=== PATIENT | female | born 1935 | race Caucasian/White ===

== ENCOUNTER 2021-11-14 21:57 | Observation (INO) | payer MEDICARE ==
[~2021-11-14] VITALS: Ht 160 cm; Wt 67.4 kg
--- NOTE | 2021-11-14 22:13 | ED GI ---
General Stated Complaint: RECTAL BLEEDING History of Present Illness Date Seen by Provider: Nov 14, 2021 Time Seen by Provider: 22:08 Initial Comments 86-year-old female presents with bright red blood per rectum. Patient reports she has probably had 20 episodes of bloody stool today. Patient reports that started around noon and she is continue to have them throughout the day. She reports that she thought this afternoon they were getting little bit better but then it started up again. Patient is on Eliquis. Patient has a previous history of GI bleed approximately 4 years ago that was life-threatening. Patient reports that she got little bit dizzy. Patient reports some abdominal cramping/pain before she has a stool. Allergies and Home Medications Allergies Coded Allergies: No Known Drug Allergies (Unverified , 11/14/21) Patient Home Medication List Home Medication List Reviewed: Yes Review of Systems Review of Systems Constitutional: chills, dizziness; No fever Respiratory: Denies Cough, Denies Shortness of Air Cardiovascular: Denies Chest Pain, Denies Palpitations Gastrointestinal: See HPI, Rectal Bleeding Genitourinary: No Symptoms Reported Musculoskeletal: no symptoms reported Psychiatric/Neurological: No Symptoms Reported Physical Exam Vital Signs Vital Signs - First Documented 11/14/21 22:02 Temp 36.0 Pulse 73 Resp 15 B/P (MAP) 138/75 (96) Pulse Ox 95 O2 Delivery Room Air Capillary Refill : Height/Weight/BMI Height: '" Weight: lbs. oz. kg; BMI Method: General Appearance: WD/WN, no apparent distress HEENT: PERRL/EOMI Neck: full range of motion Respiratory: lungs clear, normal breath sounds Cardiovascular: normal peripheral pulses, regular rate, rhythm Gastrointestinal: non tender, soft Rectal: heme positive stool; No hemorrhoids Extremities: normal range of motion, non-tender Neurologic/Psychiatric: alert, normal mood/affect, oriented x 3 Skin: normal color, warm/dry Progress/Results/Core Measures Results/Orders Lab Results Laboratory Tests Test 11/14/21 22:10 11/15/21 00:35 Range/Units White Blood Count 11.4 H 4.3-11.0 10^3/uL Red Blood Count 3.72 L 3.80-5.11 10^6/uL Hemoglobin 10.6 L 11.5-16.0 g/dL Hematocrit 34 L 35-52 % Mean Corpuscular Volume 90 80-99 fL Mean Corpuscular Hemoglobin 29 25-34 pg Mean Corpuscular Hemoglobin Concent 32 32-36 g/dL Red Cell Distribution Width 15.0 H 10.0-14.5 % Platelet Count 215 130-400 10^3/uL Mean Platelet Volume 10.5 9.0-12.2 fL Immature Granulocyte % (Auto) 1 % Neutrophils (%) (Auto) 73 42-75 % Lymphocytes (%) (Auto) 22 12-44 % Monocytes (%) (Auto) 4 0-12 % Eosinophils (%) (Auto) 0 0-10 % Basophils (%) (Auto) 0 0-10 % Neutrophils # (Auto) 8.3 H 1.8-7.8 10^3/uL Lymphocytes # (Auto) 2.5 1.0-4.0 10^3/uL Monocytes # (Auto) 0.5 0.0-1.0 10^3/uL Eosinophils # (Auto) 0.0 0.0-0.3 10^3/uL Basophils # (Auto) 0.0 0.0-0.1 10^3/uL Immature Granulocyte # (Auto) 0.1 0.0-0.1 10^3/uL Prothrombin Time 15.6 H 12.2-14.7 SEC INR Comment 1.2 0.8-1.4 Activated Partial Thromboplast Time 26 24-35 SEC Sodium Level 135 135-145 MMOL/L Potassium Level 4.8 3.6-5.0 MMOL/L Chloride Level 100 98-107 MMOL/L Carbon Dioxide Level 22 21-32 MMOL/L Anion Gap 13 5-14 MMOL/L Blood Urea Nitrogen 13 7-18 MG/DL Creatinine 0.75 0.60-1.30 MG/DL Estimat Glomerular Filtration Rate 77 BUN/Creatinine Ratio 17 Glucose Level 208 H 70-105 MG/DL Calcium Level 8.6 8.5-10.1 MG/DL Corrected Calcium 8.8 8.5-10.1 MG/DL Total Bilirubin 0.3 0.1-1.0 MG/DL Aspartate Amino Transf (AST/SGOT) 14 5-34 U/L Alanine Aminotransferase (ALT/SGPT) 13 0-55 U/L Alkaline Phosphatase 59 40-136 U/L Total Protein 5.8 L 6.4-8.2 GM/DL Albumin 3.7 3.2-4.5 GM/DL Urine Color YELLOW Urine Clarity CLEAR Urine pH 6.0 5-9 Urine Specific [place] <=1.005 1.016-1.022 Urine Protein NEGATIVE NEGATIVE Urine Glucose (UA) NEGATIVE NEGATIVE Urine Ketones 1+ H NEGATIVE Urine Nitrite NEGATIVE NEGATIVE Urine Bilirubin NEGATIVE NEGATIVE Urine Urobilinogen 0.2 < = 1.0 MG/DL Urine Leukocyte Esterase TRACE H NEGATIVE Urine RBC (Auto) 2+ H NEGATIVE Urine RBC RARE /HPF Urine WBC 2-5 /HPF Urine Squamous Epithelial Cells RARE /HPF Urine Renal Epithelial Cells RARE /HPF Urine Crystals NONE /LPF Urine Bacteria NEGATIVE /HPF Urine Casts PRESENT /LPF Urine Hyaline Casts 0-2 H /LPF Urine Mucus SMALL H /LPF Urine Culture Indicated NO My Orders Orders - HEAD,SHAWN L DO Cbc With Automated Diff (11/14/21 22:03) Comprehensive Metabolic Panel (11/14/21 22:03) Protime With Inr (11/14/21:03) Partial Thromboplastin Time (11/14/21 22:03) Ua Culture If Indicated (11/14/21 22:03) Type And Screen (11/14/21 22:03) Ct Abdomen/Pelvis W (11/14/21 22:51) Iohexol Injection (Omnipaque 350 Mg/Ml 1 (11/14/21 23:00) Received Contrast (Hold Metformin- Contr (11/14/21 23:00) Sodium Chloride Flush (Catheter Flush Sy (11/14/21 23:00) Ns (Ivpb) (Sodium Chloride 0.9% Ivpb Bag (11/14/21 23:00) Ed Admission (Communication) (11/15/21 00:31) Medications Given in ED Current Medications Medications Dose Ordered Sig/Divine Route Start Time Stop Time Status Last Admin Dose Admin Iohexol 100 ml ONCE ONCE IV 11/14/21 23:00 11/14/21 23:02 DC 11/14/21 23:47 100 ML Sodium Chloride 10 ml NEEDED PRN IV 11/14/21 23:00 11/14/21 23:48 10 ML Sodium Chloride 100 ml ONCE ONCE IV 11/14/21 23:00 11/14/21 23:02 DC 11/14/21 23:48 80 ML Vital Signs/I&O 11/14/21 11/15/21 22:02 01:00 Temp 36.0 Pulse 73 71 Resp 15 14 B/P (MAP) 138/75 (96) 133/63 Pulse Ox 95 95 O2 Delivery Room Air Room Air Progress Progress Note : Progress Note Patient hemoglobin is 10.6. Patient to be admitted for observation to Dr. Martino. We have no prior hemoglobins at this time to compare. She did not have any active bleeding while in the ER. Diagnostic Imaging Diagonstic Imaging: CT Plain Films/CT/US/NM/MRI: abdomen, pelvis Comments Scattered diverticulosis, no definite diverticulitis or colitis 11 mm noncalcified nodule left lower lobe Reviewed: [facility] Primary Impression: Rectal/anal hemorrhage Disposition: 30 STILL A PATIENT Condition: Stable Admissions Decision to Admit/Date: Nov 15, 2021 Time/Decision to Admit Time: 00:30 Departure-Patient Inst. Referrals: LIA FOOTE MD (PCP/Family) Primary Care Physician SHAWN HEAD DO Nov 14, 2021 22:13
[2021-11-14 22:16] LABS: BASOPHILS % (AUTO) 0 % (0-10); EOSINOPHILS % (AUTO) 0 % (0-10); HEMATOCRIT 34 % (35-52); HEMOGLOBIN 10.6 g/dL (11.5-16.0); LYMPHOCYTES # (AUTO) 2.5 10^3/uL (1.0-4.0); LYMPHOCYTES % (AUTO) 22 % (12-44); MEAN CORPUSCULAR HEMOGLOBIN 29 pg (25-34); MEAN CORPUSCULAR HGB CONC 32 g/dL (32-36); MEAN CORPUSCULAR VOLUME 90 fL (80-99); MEAN PLATELET VOLUME 10.5 fL (9.0-12.2); MONOCYTES # (AUTO) 0.5 10^3/uL (0.0-1.0); MONOCYTES % (AUTO) 4 % (0-12); NEUTROPHILS # (AUTO) 8.3 10^3/uL (1.8-7.8); NEUTROPHILS % (AUTO) 73 % (42-75); PLATELET COUNT 215 10^3/uL (130-400); WHITE BLOOD COUNT 11.4 10^3/uL (4.3-11.0)
[2021-11-14 22:30] LABS: INR 1.2 (0.8-1.4); PROTHROMBIN TIME PATIENT 15.6 SEC (12.2-14.7)
[2021-11-14 22:39] LABS: BILIRUBIN,TOTAL 0.3 MG/DL (0.1-1.0); CALCIUM 8.6 MG/DL (8.5-10.1); CREATININE SERUM 0.75 MG/DL (0.60-1.30); POTASSIUM 4.8 MMOL/L (3.6-5.0); TOTAL PROTEIN 5.8 GM/DL (6.4-8.2)
[2021-11-14 22:40] LABS: ALBUMIN 3.7 GM/DL (3.2-4.5)
[2021-11-14] MEDS ORDERED: NS 100 ML (IVPB) BAG IV ONE (23:00)
[2021-11-14] MEDS ORDERED: HOLD METFORMIN - RECEIVED CONTRAST 20 ML VIAL IV SCH (23:00)
[2021-11-14] MEDS ORDERED: IOHEXOL 350 MG/ML 100 ML (OMNIPAQUE 350) VIAL IV ONE (23:00)
[2021-11-14] MEDS ORDERED: CATHETER FLUSH 10 ML SYR IV PRN (23:00)
[2021-11-15 00:50] LABS: BILIRUBIN,URINE NEGATIVE (NEGATIVE); CLARITY,URINE CLEAR; COLOR,URINE YELLOW; GLUCOSE, URINE (UA) NEGATIVE (NEGATIVE); KETONES,URINE 1+ (NEGATIVE); LEUKOCYTE ESTERASE ,URINE TRACE (NEGATIVE); NITRITE,URINE NEGATIVE (NEGATIVE); PROTEIN,URINE NEGATIVE (NEGATIVE)
[2021-11-15 00:56] LABS: BACTERIA,URINE NEGATIVE /HPF; RBC,URINE RARE /HPF; RENAL EPITHELIAL CELLS,URINE RARE /HPF; SQUAMOUS EPITHELIAL CELL,UR RARE /HPF
[2021-11-15 00:57] LABS: HYALINE CASTS, URINE 0-2 /LPF
[2021-11-15 02:12] VITALS: BP 133/67
[2021-11-15] MEDS ORDERED: CATHETER FLUSH 10 ML SYR IVP PRN (02:30)
[2021-11-15] MEDS ORDERED: ONDANSETRON 4 MG/2 ML (SDV) Z0FRAN IV PRN (02:30)
[2021-11-15 04:19] VITALS: BP 119/57
[2021-11-15 05:39] LABS: BASOPHILS % (AUTO) 0 % (0-10); EOSINOPHILS % (AUTO) 0 % (0-10); HEMATOCRIT 31 % (35-52); HEMOGLOBIN 10.1 g/dL (11.5-16.0); LYMPHOCYTES # (AUTO) 2.2 10^3/uL (1.0-4.0); LYMPHOCYTES % (AUTO) 21 % (12-44); MEAN CORPUSCULAR HEMOGLOBIN 29 pg (25-34); MEAN CORPUSCULAR HGB CONC 33 g/dL (32-36); MEAN CORPUSCULAR VOLUME 90 fL (80-99); MEAN PLATELET VOLUME 10.3 fL (9.0-12.2); MONOCYTES # (AUTO) 0.7 10^3/uL (0.0-1.0); MONOCYTES % (AUTO) 7 % (0-12); NEUTROPHILS # (AUTO) 7.5 10^3/uL (1.8-7.8); NEUTROPHILS % (AUTO) 71 % (42-75); PLATELET COUNT 216 10^3/uL (130-400); WHITE BLOOD COUNT 10.5 10^3/uL (4.3-11.0)
[2021-11-15 05:55] LABS: POTASSIUM 4.3 MMOL/L (3.6-5.0)
[2021-11-15 05:56] LABS: CALCIUM 8.7 MG/DL (8.5-10.1)
[2021-11-15 06:00] LABS: CREATININE SERUM 0.65 MG/DL (0.60-1.30)
[2021-11-15] MEDS: CATHETER FLUSH 10 ML SYR IVP SCH ×3 (06:22→20:36)
[2021-11-15 07:55] VITALS: BP 139/67
--- NOTE | 2021-11-15 08:09 | Diagnostic Imaging Report ---
PROCEDURE: CT abdomen and pelvis with contrast. TECHNIQUE: Multiple contiguous axial images were obtained through the abdomen and pelvis after administration of intravenous contrast. Auto Exposure Controls were utilized during the CT exam to meet ALARA standards for radiation dose reduction. All CT scans use one or more of the following dose optimizing techniques: automated exposure control, MA and/or KvP adjustment based on patient size and exam type or iterative reconstruction. INDICATION: Abdominal pain. Rectal bleeding. COMPARISON: None. FINDINGS: 1.1 cm solid pulmonary nodule in the left lower lobe. Numerous simple appearing cysts in the liver. Indeterminate enhancing mass in the right hepatic lobe measuring approximately 0.9 cm. Cholecystectomy. Calcified granulomas in the spleen. The pancreas, adrenals, left kidney, collecting systems and bladder are negative. Simple appearing cysts in the right kidney. Reproductive structures are unremarkable. Normal appendix. No free intraperitoneal air or fluid. No lymphadenopathy. Moderate colonic diverticulosis without evidence of active diverticulitis. No evidence of bowel obstruction. Moderate spondylotic changes in the visualized spine. No acute osseous findings. IMPRESSION: 1. Moderate colonic diverticulosis without evidence of active diverticulitis. 2. Indeterminate enhancing mass in the right hepatic lobe measuring up to 0.9 cm. Recommend nonemergent follow-up with multiphase contrast-enhanced dedicated cross-sectional imaging. 3. 1.1 cm solid pulmonary nodule in the left lower lobe. Fleischmann criteria would recommend a chest CT in 3 months. Findings differ from preliminary interpretation which did not mention the indeterminate enhancing mass in the liver. Report was faxed and called to Dominick Patel nurse by radah at 8:05am. SARITA Jimenez, was also notified. Dictated by: Dictated on workstation # [id number]
--- NOTE | 2021-11-15 10:35 | History & Physical ---
HPI History of Present Illness: 86 yo female presented to ER via ambulance after yesterday at noon started having bleeding from rectum with diarrhea multiple times from then on all day. She called the doctor's office and they told her if it kept going or got worse to go the ER. She had some decrease but then worsened again around 7:30 pm with more bleeding and diarrhea. She has not had any more episodes since the ambulance came, but at that point she was so weak she was near passing out. Reports blood pressure was very low when EMS arrived and she felt better right off after getting IVF. She does take Eliquis but didn't take it yesterday evening after this started. She had a severe episode of this 4 years ago and had to be life flighted out of of [place] and was in ICU for several days, more than a week and had 12 units prbcs but had significant difficulty finding the source. Finally they were able to find a bleeding source behind a diverticuli and clipped that as well as a few other clips. She ultimately went to swing bed for further recovery. One time several years prior she had some bleeding which stopped and she had colonoscopy then which didn't show any concerns, but she also notes she wasn't on blood thinner then. Source: patient, family Exam Limitations: no limitations Date seen by provider: Nov 15, 2021 Time Seen by Provider: 10:33 Attending Physician Clayton Ortiz MD PCP Admitting Physician: Bianca Martino MD Attending Physician: Bianca Martino MD Consult Date of Admission Nov 15, 2021 at 02:04 Home Medications Home Medications Reviewed patient Home Medication Reconciliation performed by pharmacy medication reconciliations turfgrass technician and/or nursing. Patients Allergies have been reviewed. Allergies Coded Allergies: No Known Drug Allergies (Unverified , 11/14/21) [id number] Hx Patient Social History Smoking Status: Former Smoker Alcohol Use?: No Have you traveled recently?: No Immunizations Up To Date Influenza Vaccine Up-to-Date: Yes; Up-to-Date (02/05/21) First/Initial COVID19 Vaccinat: 05/09/2020 Second COVID19 Vaccination [place]: 02/28/2021 Third COVID19 Vaccination Date: 10/08/2021 COVID19 Vaccine Manager Consumer Insights: Rose Marie Past Medical History PMHx: HTN Atrial fibrillation COPD Diverticulosis SurgHx: Multiple scopes Liver cyst removal with cholecystectomy Family Medical History Significant Family History: No Pertinent Family Hx Review of Systems ([facility]) Constitutional: No fever Respiratory: No short of breath Cardiovascular: No chest pain, No palpitations Gastrointestinal: see HPI Reviewed Test Results Reviewed Test Results Lab Laboratory Tests Test 11/14/21 22:10 11/15/21 00:35 11/15/21 05:18 11/15/21 11:14 Range/Units White Blood Count 11.4 H 10.5 9.4 4.3-11.0 10^3/uL Red Blood Count 3.72 L 3.46 L 3.67 L 3.80-5.11 10^6/uL Hemoglobin 10.6 L 10.1 L 10.7 L 11.5-16.0 g/dL Hematocrit 34 L 31 L 33 L 35-52 % Mean Corpuscular Volume 90 90 91 80-99 fL Mean Corpuscular Hemoglobin 29 29 29 25-34 pg Mean Corpuscular Hemoglobin Concent 32 33 32 32-36 g/dL Red Cell Distribution Width 15.0 H 15.0 H 15.1 H 10.0-14.5 % Platelet Count 215 216 209 130-400 10^3/uL Mean Platelet Volume 10.5 10.3 10.3 9.0-12.2 fL Immature Granulocyte % (Auto) 1 1 % Neutrophils (%) (Auto) 73 71 42-75 % Lymphocytes (%) (Auto) 22 21 12-44 % Monocytes (%) (Auto) 4 7 0-12 % Eosinophils (%) (Auto) 0 0 0-10 % Basophils (%) (Auto) 0 0 0-10 % Neutrophils # (Auto) 8.3 H 7.5 1.8-7.8 10^3/uL Lymphocytes # (Auto) 2.5 2.2 1.0-4.0 10^3/uL Monocytes # (Auto) 0.5 0.7 0.0-1.0 10^3/uL Eosinophils # (Auto) 0.0 0.0 0.0-0.3 10^3/uL Basophils # (Auto) 0.0 0.0 0.0-0.1 10^3/uL Immature Granulocyte # (Auto) 0.1 0.1 0.0-0.1 10^3/uL Prothrombin Time 15.6 H 12.2-14.7 SEC INR Comment 1.2 0.8-1.4 Activated Partial Thromboplast Time 26 24-35 SEC Sodium Level 135 138 135-145 MMOL/L Potassium Level 4.8 4.3 3.6-5.0 MMOL/L Chloride Level 100 107 98-107 MMOL/L Carbon Dioxide Level 22 23 21-32 MMOL/L Anion Gap 13 8 5-14 MMOL/L Blood Urea Nitrogen 13 10 7-18 MG/DL Creatinine 0.75 0.65 0.60-1.30 MG/DL Estimat Glomerular Filtration Rate 77 85 BUN/Creatinine Ratio 17 15 Glucose Level 208 H 109 H 70-105 MG/DL Calcium Level 8.6 8.7 8.5-10.1 MG/DL Corrected Calcium 8.8 8.5-10.1 MG/DL Total Bilirubin 0.3 0.1-1.0 MG/DL Aspartate Amino Transf (AST/SGOT) 14 5-34 U/L Alanine Aminotransferase (ALT/SGPT) 13 0-55 U/L Alkaline Phosphatase 59 40-136 U/L Total Protein 5.8 L 6.4-8.2 GM/DL Albumin 3.7 3.2-4.5 GM/DL Urine Color YELLOW Urine Clarity CLEAR Urine pH 6.0 5-9 Urine Specific [place] <=1.005 1.016-1.022 Urine Protein NEGATIVE NEGATIVE Urine Glucose (UA) NEGATIVE NEGATIVE Urine Ketones 1+ H NEGATIVE Urine Nitrite NEGATIVE NEGATIVE Urine Bilirubin NEGATIVE NEGATIVE Urine Urobilinogen 0.2 < = 1.0 MG/DL Urine Leukocyte Esterase TRACE H NEGATIVE Urine RBC (Auto) 2+ H NEGATIVE Urine RBC RARE /HPF Urine WBC 2-5 /HPF Urine Squamous Epithelial Cells RARE /HPF Urine Renal Epithelial Cells RARE /HPF Urine Crystals NONE /LPF Urine Bacteria NEGATIVE /HPF Urine Casts PRESENT /LPF Urine Hyaline Casts 0-2 H /LPF Urine Mucus SMALL H /LPF Urine Culture Indicated NO Radiology CT abd/pelvis 11/14/21: IMPRESSION: 1. Moderate colonic diverticulosis without evidence of active diverticulitis. 2. Indeterminate enhancing mass in the right hepatic lobe measuring up to 0.9 cm. Recommend nonemergent follow-up with multiphase contrast-enhanced dedicated cross-sectional imaging. 3. 1.1 cm solid pulmonary nodule in the left lower lobe. Fleischmann criteria would recommend a chest CT in 3 months. Physical Exam-([facility]) Physical Exam Vital Signs VS - Last 72 Hours, by Label 11/14/21 11/15/21 11/15/21 11/15/21 22:02 01:00 02:12 02:30 Temp 36.0 37.1 Pulse 73 71 70 Resp 15 14 18 B/P (MAP) 138/75 (96) 133/63 133/67 (89) Pulse Ox 95 95 93 O2 Delivery Room Air Room Air Room Air Room Air 11/15/21 11/15/21 11/15/21 04:19 07:55 11:21 Temp 36.2 36.4 36.5 Pulse 65 76 65 Resp 18 18 18 B/P (MAP) 119/57 (77) 139/67 (91) 139/61 (87) Pulse Ox 93 94 96 O2 Delivery Room Air Room Air Room Air Capillary Refill : Less Than 3 Seconds General Appearance: WD/WN, no apparent distress Respiratory: lungs clear, normal breath sounds Cardiovascular: regular rate, rhythm, no murmur Gastrointestinal: normal bowel sounds, non tender, soft Extremities: no pedal edema Neurologic/Psychiatric: alert, normal mood/affect, oriented x 3 Skin: normal color, warm/dry Assessment/Plan Assessment/Plan Admission Status: Observation (1) Hematochezia Status: Acute Assessment & Plan: Second episode, first episode 4 years ago life threatening. Suspect recurrent diverticula bleed, follow hemoglobin, hold Eliquis. Surgery consulted. (2) Atrial fibrillation Status: Chronic Assessment & Plan: Hold Eliquis, continue Tikosyn. Hold diltiazem due to low BP. (3) Hypertension Status: Chronic Assessment & Plan: Hold diltiazem and lisinopril due to hypotension. (4) Hyperlipidemia Status: Chronic Assessment & Plan: Resume home statin. (5) COPD (chronic obstructive pulmonary disease) Status: Chronic Assessment & Plan: Resume home Trelegy. (6) Liver mass, right lobe Status: Acute Assessment & Plan: Incidental on CT, discussed with patient recommendation for dedicated image follow up non-emergent. (7) Left lower lobe pulmonary nodule Status: Acute Assessment & Plan: Incident, discussed with patient recommendation for [address] (8) DVT prophylaxis Status: Acute Assessment & Plan: No pharmacologic due to acute GI bleeding. BIANCA MARTINO MD Nov 15, 2021 10:35
[2021-11-15] MEDS ORDERED: FLUT1BLS3 INH (10:41)
[2021-11-15] MEDS ORDERED: POTA-51 PO (10:41)
[2021-11-15] MEDS ORDERED: DOFE250C3 PO (10:41)
[2021-11-15] MEDS ORDERED: LISI20TA26 PO (10:41)
[2021-11-15] MEDS ORDERED: DIGO125T3 PO (10:41)
[2021-11-15] MEDS ORDERED: PRAV40TA2 PO (10:41)
[2021-11-15] MEDS ORDERED: APIX5TAB PO (10:41)
[2021-11-15] MEDS ORDERED: DILT240C91 PO (10:41)
[2021-11-15] MEDS ORDERED: PATIENT MAY USE OWN MEDS, ALL MC SCH (11:00)
[2021-11-15 11:19] LABS: HEMATOCRIT 33 % (35-52); HEMOGLOBIN 10.7 g/dL (11.5-16.0); MEAN CORPUSCULAR HEMOGLOBIN 29 pg (25-34); MEAN CORPUSCULAR HGB CONC 32 g/dL (32-36); MEAN CORPUSCULAR VOLUME 91 fL (80-99); MEAN PLATELET VOLUME 10.3 fL (9.0-12.2); PLATELET COUNT 209 10^3/uL (130-400); WHITE BLOOD COUNT 9.4 10^3/uL (4.3-11.0)
[2021-11-15 11:21] VITALS: BP 139/61
[2021-11-15] MEDS ORDERED: ACET-2267 PO (12:28)
--- NOTE | 2021-11-15 13:36 | Consultation - Surgery ---
PATRICIA ANDRADE 11/15/21 1336: History of Present Illness History of Present Illness Patient Consulted On(teodoro/time) 11/15/21 13:22 Date Seen by Provider: Nov 15, 2021 Time Seen by Provider: 12:56 History of Present Illness Consult requested by Dr. Ho. A 86 y/o female patient with hx of HTN, Afib, diverticulosis presents with CC of GI bleeding with diarrhea onset 1 day ago. Patient reports she had diarrhea with bright red blood starting at noon yesterday. She called her primary care office and was told to come to the ER if the bleeding did not stop. States in the ER, patient continued to have diarrhea, but her last episode was at 8:30 pm last night. She states she had severe bleeding per rectum like this 4 years ago and had to undergo 4 colonoscopies at [facility] which showed diverticulosis to be present. Diverticuli were clamped and bleeding resolved until now. Patient has some dizziness. Patient denies any abdominal pain, chest pain, shortness of breath, nausea/vomiting, fever or chills at this time. Patient is on Eliquis but did not take her last dose yesterday due to bleeding. Hb is 10.7 currently. Allergies and Home Medications Allergies Coded Allergies: No Known Drug Allergies (Unverified , 11/14/21) Patient Home Medication List Home Medication List Reviewed: Yes Acetaminophen (Tylenol Extra Strength) 500 Mg Tablet, 500-1,000 MG PO Q8H PRN for PAIN-MILD (1-4), (Reported) Entered as Reported by: CATRACHITA VIDALES on 11/15/21 1228 Last Action: Reviewed Apixaban (Eliquis) 5 Mg Tablet, 5 MG PO BID, (Reported) Entered as Reported by: BIANCA HO on 11/15/21 1041 Last Action: Reviewed Digoxin (Digoxin) 125 Mcg (0.125 Mg) Tablet, 125 MCG PO DAILY, (Reported) Entered as Reported by: BIANCA HO on 11/15/21 104 Last Action: Reviewed Diltiazem HCl (Diltiazem 24Hr ER) 240 Mg Cap.er.24h, 240 MG PO DAILY, (Reported) Entered as Reported by: BIANCA HO on 11/15/21 1041 Last Action: Reviewed Dofetilide (Dofetilide) 250 Mcg Capsule, 250 MCG PO , (Reported) Entered as Reported by: BIANCA HO on 11/15/211040 Last Action: Reviewed Fluticasone/Umeclidin/Vilanter (Trelegy Ellipta 100-62.5-25) 100-62.5 B lst.w.dev, 1 PUFF INH DAILY, (Reported) Entered as Reported by: BIANCA HO on 11/15/211040 Last Action: Reviewed Lisinopril (Lisinopril) 20 Mg Tablet, 20 MG PO BID, (Reported) Entered as Reported by: BIANCA HO on 11/15/211040 Last Action: Reviewed Potassium Chloride (Potassium Chloride) 20 Meq Tablet.er, 20 MEQ PO BID, (Reported) Entered as Reported by: BIANCA HO on 11/15/211040 Last Action: Reviewed Pravastatin Sodium (Pravastatin Sodium) 40 Mg Tablet, 40 MG PO HS, (Reported) Entered as Reported by: BIANCA HO on 11/15/211040 Last Action: Reviewed Past Sumoafz-Kwynom-Mpxzlk Hx Patient Social History Smoking Status: Former Smoker Alcohol Use?: No Have you traveled recently?: No Cardiovascular History of Cardiac Disorders: Yes Cardiac Disorders: Atrial Fibrillation, Hypertension Gastrointestinal History of Gastrointestinal Di: Yes Gastrointestinal Disorders: Abdominal Hernia, Diverticulosis, Hemorrhoids Family Medical History Significant Family History: No Pertinent Family Hx Review of Systems-General Constitutional: No chills, No diaphoresis; dizziness; No fever EENTM: No hearing loss, No blurred vision Respiratory: No cough, No short of breath Cardiovascular: No chest pain, No palpitations Gastrointestinal: No abdominal pain; diarrhea (with bright red blood) Genitourinary: No discharge, No dysuria Musculoskeletal: No back pain, No joint pain Skin: No change in color, No change in hair/nails Psychiatric/Neurological: Denies Anxiety, Denies Depressed Physical Exam-General Problems Physical Exam Vital Signs Vital Signs - First Documented 11/14/21 22:02 Temp 36.0 Pulse 73 Resp 15 B/P (MAP) 138/75 (96) Pulse Ox 95 O2 Delivery Room Air Capillary Refill : Less Than 3 Seconds General Appearance: WD/WN, no apparent distress HEENT: PERRL/EOMI, normal ENT inspection Neck: supple, normal inspection Respiratory: chest non-tender, no respiratory distress, no accessory muscle use Cardiovascular: no edema, no JVD Gastrointestinal: non tender, soft Rectal: No deferred Back: normal inspection, no CVA tenderness Extremities: normal inspection, no pedal edema Neurologic/Psychiatric: alert, normal mood/affect, oriented x 3 Skin: normal color, warm/dry Lymphatic: no adenopathy Data Review Labs Laboratory Tests 11/14/21 22:10: White Blood Count 11.4H, Red Blood Count 3.72L, Hemoglobin 10.6L, Hematocrit 34L , Mean Corpuscular Volume 90, Mean Corpuscular Hemoglobin 29, Mean Corpuscular Hemoglobin Concent 32, Red Cell Distribution Width 15.0H, Platelet Count 215, Mean Platelet Volume 10.5, Immature Granulocyte % (Auto) 1, Neutrophils (%) (Auto) 73, Lymphocytes (%) (Auto) 22, Monocytes (%) (Auto) 4, Eosinophils (%) (Auto) 0, Basophils (%) (Auto) 0, Neutrophils # (Auto) 8.3H, Lymphocytes # (Auto) 2.5, Monocytes # (Auto) 0.5, Eosinophils # (Auto) 0.0, Basophils # (Auto) 0.0, Immature Granulocyte # (Auto) 0.1, Prothrombin Time 15.6H, INR Comment 1.2, Activated Partial Thromboplast Time 26, Sodium Level 135, Potassium Level 4.8, Chloride Level 100, Carbon Dioxide Level 22, Anion Gap 13, Blood Urea Nitrogen 13, Creatinine 0.75, Estimat Glomerular Filtration Rate 77, BUN/Creatinine Ratio 17, Glucose Level 208H, Calcium Level 8.6, Corrected Calcium 8.8, Total Biliru bin 0.3, Aspartate Amino Transf (AST/SGOT) 14, Alanine Aminotransferase (ALT/SGPT) 13, Alkaline Phosphatase 59, Total Protein 5.8L, Albumin 3.7 11/15/21 00:35: Urine Color YELLOW, Urine Clarity CLEAR, Urine pH 6.0, Urine Specific [place] <=1.005, Urine Protein NEGATIVE, Urine Glucose (UA) NEGATIVE, Urine Ketones 1+H, Urine Nitrite NEGATIVE, Urine Bilirubin NEGATIVE, Urine Urobilinogen 0.2, Urine Leukocyte Esterase TRACEH, Urine RBC (Auto) 2+H, Urine RBC RARE, Urine WBC 2-5, Urine Squamous Epithelial Cells RARE, Urine Renal Epithelial Cells RARE, Urine Crystals NONE, Urine Bacteria NEGATIVE, Urine Casts PRESENT, Urine Hyaline Casts 0-2H, Urine Mucus SMALLH, Urine Culture Indicated NO 11/15/21 05:18: White Blood Count 10.5, Red Blood Count 3.46L, Hemoglobin 10.1L, Hematocrit 31L, Mean Corpuscular Volume 90, Mean Corpuscular Hemoglobin 29, Mean Corpuscular Hemoglobin Concent 33, Red Cell Distribution Width 15.0H, Platelet Count 216, Mean Platelet Volume 10.3, Immature Granulocyte % (Auto) 1, Neutrophils (%) (Auto) 71, Lymphocytes (%) (Auto) 21, Monocytes (%) (Auto) 7, Eosinophils (%) (Auto) 0, Basophils (%) (Auto) 0, Neutrophils # (Auto) 7.5, Lymphocytes # (Auto) 2.2, Monocytes # (Auto) 0.7, Eosinophils # (Auto) 0.0, Basophils # (Auto) 0.0, Immature Granulocyte # (Auto) 0.1, Sodium Level 138, Potassium Level 4.3, Chloride Level 107, Carbon Dioxide Level 23, Anion Gap 8, Blood Urea Nitrogen 10 , Creatinine 0.65, Estimat Glomerular Filtration Rate 85, BUN/Creatinine Ratio 15, Glucose Level 109H, Calcium Level 8.7 11/15/21 11:14: White Blood Count 9.4, Red Blood Count 3.67L, Hemoglobin 10.7L, Hematocrit 33L, Mean Corpuscular Volume 91, Mean Corpuscular Hemoglobin 29, Mean Corpuscular Hemoglobin Concent 32, Red Cell Distribution Width 15.1H, Platelet Count 209, Mean Platelet Volume 10.3 Assessment/Plan Assessment/Plan Assessment/Plan History of Diverticulosis GI Bleed Atrial Fibrillation Continue to monitor labs Consider discharge home soon since bleeding has resolved Consider colonoscopy in the future if necessary ASHLEY BARKER DO 11/15/21 5164: History of Present Illness History of Present Illness History of Present Illness Counts requested by Dr. Ho for rectal bleeding. Patient is a 86-year-old female with rectal bleeding that started yesterday at noon. The ambulance came to pick her up which she states is stopped just prior to their arrival. She went to the ER. She states that she had some slight crampy pain only when she was about to have diarrhea but otherwise has no abdominal pain. She is on anticoagulation for atrial fibrillation. She is not had any significant bleeding since. She has history of bleeding 4 years ago which was found to be diverticular. Patient reports some dizziness. She denies fever sweats chills shortness of breath or chest pain at this time. Hemoglobin 10.7. Allergies and Home Medications Allergies Coded Allergies: No Known Drug Allergies (Unverified , 11/14/21) Patient Home Medication List Home Medication List Reviewed: Yes Acetaminophen (Tylenol Extra Strength) 500 Mg Tablet, 500-1,000 MG PO Q8H PRN for PAIN-MILD (1-4), (Reported) Entered as Reported by: CATRACHITA VIDALES on 11/15/21 1228 Last Action: Reviewed Apixaban (Eliquis) 5 Mg Tablet, 5 MG PO BID, (Reported) Entered as Reported by: BIANCA HO on 11/15/211040 Last Action: Reviewed Digoxin (Digoxin) 125 Mcg (0.125 Mg) Tablet, 125 MCG PO DAILY, (Reported) Entered as Reported by: BIANCA HO on 11/15/21 104 Last Action: Reviewed Diltiazem HCl (Diltiazem 24Hr ER) 240 Mg Cap.er.24h, 240 MG PO DAILY, (Reported) Entered as Reported by: BIANCA HO on 11/15/211040 Last Action: Reviewed Dofetilide (Dofetilide) 250 Mcg Capsule, 250 MCG PO 0830,2029, (Reported) Entered as Reported by: BIANCA HO on 11/15/211040 Last Action: Reviewed Fluticasone/Umeclidin/Vilanter (Trelegy Ellipta 100-62.5-25) 100-62.5 Blst.w.dev, 1 PUFF INH DAILY, (Reported) Entered as Reported by: BIANCA HO on 11/15/21 104 Last Action: Reviewed Lisinopril (Lisinopril) 20 Mg Tablet, 20 MG PO BID, (Reported) Entered as Reported by: BIANCA HO on 11/15/211040 Last Action: Reviewed Potassium Chloride (Potassium Chloride) 20 Meq Tablet.er, 20 MEQ PO BID, (Reported) Entered as Reported by: BIANCA HO on 11/15/211040 Last Action: Reviewed Pravastatin Sodium (Pravastatin Sodium) 40 Mg Tablet, 40 MG PO HS, (Reported) Entered as Reported by: BIANCA N [place] on 11/15/211040 Last Action: Reviewed Past Wuaekha-Kanbhc-Xqvkii Hx Reviewed Nursing Assessment Reviewed/Agree w Nursing PMH: Yes Family Medical History Significant Family History: No Pertinent Family Hx Review of Systems-General Constitutional: No chills, No diaphoresis; dizziness; No fever EENTM: No hearing loss, No blurred vision Respiratory: No cough, No short of breath Cardiovascular: No chest pain, No palpitations Gastrointestinal: No abdominal pain; diarrhea (with bright red blood), melena Genitourinary: No discharge, No dysuria Musculoskeletal: No back pain, No joint pain Skin: No change in color, No change in hair/nails Psychiatric/Neurological: Denies Anxiety, Denies Depressed All Other Systems Reviewed Negative Unless Noted: Yes (Negative excepted noted.) Physical Exam-General Problems Physical Exam General Appearance: WD/WN, no apparent distress HEENT: PERRL/EOMI, normal ENT inspection Neck: supple, normal inspection Respiratory: chest non-tender, no respiratory distress, no accessory muscle use Cardiovascular: no edema, no JVD Gastrointestinal: non tender, soft Rectal: deferred Back: normal inspection, no CVA tenderness Extremities: normal inspection, no pedal edema Neurologic/Psychiatric: alert, normal mood/affect, oriented x 3 Skin: normal color, warm/dry Lymphatic: no adenopathy Assessment/Plan Assessment/Plan Assessment/Plan Diverticulosis Lower GI Bleed Atrial Fibrillation Retirement anticoagulation Follow hgb, transfuse prbc if needed Clear liquids Hold anticoagulation Consider colonoscopy if continues to have bleeding. Likely diverticular bleed. Supervisory-Addendum Brief Verification & Attestation Participated in pt care: history, MDM, physical Personally performed: exam, history, MDM, supervision of care Care discussed with: Medical Student Procedures: n/a Results interpretation: Verified all documentation Verification and Attestation of Medical Student E/M Service A medical student performed and documented this service in my presence. I reviewed and verified all information documented by the medical student and made modifications to such information, when appropriate. I personally performed the physical exam and medical decision making. Ashley Barker, Nov 15, 2021,16:54 PATRICIA ANDRADE Nov 15, 2021 13:36 ASHLEY BARKER DO Nov 15, 2021 16:54
[2021-11-15 15:18] VITALS: BP 134/60
[2021-11-15 19:43] VITALS: BP_SYST 124; BP_SYST 131; BP_DIAS 63; BP_DIAS 74
[2021-11-15] MEDS: ROSUVASTATIN 5 MG (CRESTOR) TABLET PO SCH (20:34)
[2021-11-15] MEDS: DOFETILIDE 250 MCG CAP (TIKOSYN) NON-FORMLUARY PO SCH (20:34)
[2021-11-15] MEDS ORDERED: NON-FORMULARY MEDICATION 1 EA EA (Pravastatin Sodium 40 MG) PO SCH (21:00)
[2021-11-16] VITALS: BP 110/54
[2021-11-16 04:06] VITALS: BP 140/63
[2021-11-16 06:03] LABS: HEMATOCRIT 28 % (35-52); HEMOGLOBIN 8.9 g/dL (11.5-16.0); MEAN CORPUSCULAR HEMOGLOBIN 29 pg (25-34); MEAN CORPUSCULAR HGB CONC 32 g/dL (32-36); MEAN CORPUSCULAR VOLUME 91 fL (80-99); MEAN PLATELET VOLUME 10.4 fL (9.0-12.2); PLATELET COUNT 191 10^3/uL (130-400)
[2021-11-16] MEDS: CATHETER FLUSH 10 ML SYR IVP SCH ×2 (06:58→14:39)
--- NOTE | 2021-11-16 07:13 | Progress Note - Surgery ---
PATRICIA ANDRADE 11/16/21 0713: Subjective Date Seen by a Provider: Nov 16, 2021 Time Seen by a Provider: 07:09 Subjective/Events-last exam Patient is resting comfortably in bed. Reports she has no abdominal discomfort, nausea, or vomiting. States she has still not had any BMs since first presenting to the ER. Today patient's Hb down to 8.9 from 10.7 previously so will continue to monitor. Patient denies any chest pain, shortness of breath, or any other complaints at this time. Objective Exam Vital Signs Date Time Temp Pulse Resp B/P (MAP) Pulse Ox O2 Delivery O2 Flow Rate FiO2 11/16/21 04:06 36.5 71 16 140/63 (88) 95 Room Air 11/16/21 00:00 36.1 61 16 110/54 (72) 94 Room Air 11/15/21 19:43 36.5 66 18 124/74 (91) 94 Room Air 11/15/21 15:18 36.7 60 18 134/60 (84) 95 Room Air 11/15/21 11:21 36.5 65 18 139/61 (87) 96 Room Air 11/15/21 07:55 36.4 76 18 139/67 (91) 94 Room Air I & O 11/16/21 07:00 Intake Total 1530 ml Output Total 1350 ml Balance 180 ml Capillary Refill : Less Than 3 Seconds General Appearance: No Apparent Distress, WD/WN HEENT: PERRL/EOMI, Normal ENT Inspection Neck: Normal Inspection, Supple Respiratory: Chest Non Tender, No Accessory Muscle Use, No Respiratory Distress Cardiovascular: No Edema, No JVD Gastrointestinal: non tender, soft Extremity: Normal Inspection, Non Tender Neurologic/Psychiatric: Alert, Oriented x3, Normal Mood/Affect Skin: Normal Color, Warm/Dry Lymphatic: No Adenopathy Results Lab Laboratory Tests 11/15/21 11:14: White Blood Count 9.4, Red Blood Count 3.67L, Hemoglobin 10.7L, Hematocrit 33L, Mean Corpuscular Volume 91, Mean Corpuscular Hemoglobin 29, Mean Corpuscular Hemoglobin Concent 32, Red Cell Distribution Width 15.1H, Platelet Count 209, Mean Platelet Volume 10.3 11/16/21 05:38: White Blood Count 6.0, Red Blood Count 3.08L, Hemoglobin 8.9L, Hematocrit 28L, Mean Corpuscular Volume 91, Mean Corpuscular Hemoglobin 29, Mean Corpuscular Hemoglobin Concent 32, Red Cell Distribution Width 15.3H, Platelet Count 191, Mean Platelet Volume 10.4 Assessment/Plan Assessment/Plan Assessment/Plan Diverticulosis Lower GI Bleed Atrial Fibrillation Long-Term anticoagulation Follow hgb, transfuse prbc if needed Clear liquids Hold anticoagulation Consider colonoscopy if continues to have bleeding. Likely diverticular bleed. ASHLEY FAGAN DO 11/16/21 1225: Subjective Subjective/Events-last exam Had bm, no blood. Hgb drop to 8.9 from 10.7. No abominal pain. Denies n/v fever sweats chills shortness of breath or chest pain. Objective Exam General Appearance: No Apparent Distress, WD/WN HEENT: PERRL/EOMI, Normal ENT Inspection Neck: Normal Inspection, Supple Respiratory: Chest Non Tender, No Accessory Muscle Use, No Respiratory Distress Cardiovascular: Regular Rate, Rhythm, No JVD Gastrointestinal: non tender, soft Extremity: Normal Inspection, Non Tender Neurologic/Psychiatric: Alert, Oriented x3, Normal Mood/Affect Skin: Normal Color, Warm/Dry Lymphatic: No Adenopathy Assessment/Plan Assessment/Plan Assessment/Plan Diverticulosis Lower GI Bleed Atrial Fibrillation Long-Term anticoagulation Follow hgb, transfuse prbc if needed had slight drop would continue to monitor Clear liquids Hold anticoagulation Consider colonoscopy if continues to have bleeding vs outpatient if warrants Likely diverticular bleed. Supervisory-Addendum Brief Verification & Attestation Participated in pt care: history, MDM, physical Personally performed: exam, history, MDM, supervision of care Care discussed with: Medical Student Procedures: n/a Results interpretation: Verified all documentation Verification and Attestation of Medical Student E/M Service A medical student performed and documented this service in my presence. I reviewed and verified all information documented by the medical student and made modifications to such information, when appropriate. I personally performed the physical exam and medical decision making. Ashley Fagan, Nov 16, 2021,12:24 PATRICIA ANDRADE Nov 16, 2021 07:13 ASHLEY FAGAN DO Nov 16, 2021 12:25
[2021-11-16 07:55] VITALS: BP 138/63
[2021-11-16] MEDS: DOFETILIDE 250 MCG CAP (TIKOSYN) NON-FORMLUARY PO SCH ×2 (08:05→22:30)
[2021-11-16] MEDS ORDERED: DIGOXIN 0.125 MG (LANOXIN) TAB PO SCH (09:00)
[2021-11-16] MEDS ORDERED: TRELEGY ELLIPTA INHALER IH SCH (09:00)
[2021-11-16 11:10] VITALS: BP 140/61
--- NOTE | 2021-11-16 11:31 | Progress Note ---
MIK MILLER 11/16/21 1131: Subjective Subjective/Events-last exam Patient is an 86 yo f admitted for rectal bleeding. States that she feels good today, has experienced no new bleeding, and reports a single bowel movement without overt blood. Denies nausea, vomiting, headache, sweating, SOB, or palpitations. She reports one instance of lightheadedness while standing immediately after micturition. Review of Systems General: No Chills, No Fatigue, No Malaise HEENT: No Head Aches Cardiovascular: Lt Headedness (While standing after micturition.); No: Palpitations Gastrointestinal: Hematochezia (Admitted for hematochezia but no overt blood was seen during her last BM.); No: Nausea, Vomiting, Abdominal Pain, Diarrhea Objective Exam Last Set of Vital Signs Vital Signs Date Time Temp Pulse Resp B/P (MAP) Pulse Ox O2 Delivery O2 Flow Rate FiO2 11/16/21 11:10 36.4 64 18 140/61 (87) 92 Room Air Capillary Refill : Less Than 3 Seconds I&O Intake and Output 11/16/21 00:00 Intake Total 1630 ml Output Total 1250 ml Balance 380 ml Intake Oral 1630 ml Output Urine Total 1250 ml # Voids 2 Daily Weight Change No General: Alert, Oriented X3, Cooperative, No Acute Distress Neck: No JVD Lungs: Clear to Auscultation, Normal Air Movement Heart: Regular Rate, Normal S1, Normal S2, No Murmurs Abdomen: Normal Bowel Sounds, Soft, Other (Tenderness in RLQ at site of previous hernia) Extremities: Normal Pulses (Radial pulse was 2+ bilaterally) Skin: No Rashes, No Significant Lesion Neuro: Normal Speech, Normal Tone Psych/Mental Status: Mental Status NL, Mood NL Other physical findings Capillary refill <2 seconds Results/Procedures Lab Laboratory Tests 11/16/21 05:38: White Blood Count 6.0, Red Blood Count 3.08L, Hemoglobin 8.9L, Hematocrit 28L, Mean Corpuscular Volume 91, Mean Corpuscular Hemoglobin 29, Mean Corpuscular Hemoglobin Concent 32, Red Cell Distribution Width 15.3H, Platelet Count 191, Mean Platelet Volume 10.[address] abd/pelvis 11/14/21: IMPRESSION: 1. Moderate colonic diverticulosis without evidence of active diverticulitis. 2. Indeterminate enhancing mass in the right hepatic lobe measuring up to 0.9 cm. Recommend nonemergent follow-up with multiphase contrast-enhanced dedicated cross-sectional imaging. 3. 1.1 cm solid pulmonary nodule in the left lower lobe. Fleischmann criteria would recommend a chest CT in 3 months. Meds As indicated in medications list Assessment/Plan Assessment/Plan Admission Dx Hematochezia Admission Status: Observation (1) Hematochezia Status: Acute Assessment & Plan: Second episode, first episode 4 years ago life threatening. Suspect recurrent diverticula bleed, follow hemoglobin, hold Eliquis. Surgery consulted, colonoscopy not yet recommended. Slight drop in HGB (8.9 down from 10.7) and HCT (28 down from 33), continue careful observation for lab values and symptoms of blood loss. Transfusion if needed. (2) Atrial fibrillation Status: Chronic Assessment & Plan: Hold Eliquis, continue Tikosyn. Hold diltiazem due to low BP. Qualifiers: Qualified Codes: I48.91 - Unspecified atrial fibrillation (3) Hypertension Status: Chronic Assessment & Plan: Hold diltiazem and lisinopril due to hypotension. (4) Hyperlipidemia Status: Chronic Assessment & Plan: Resume home statin. (5) COPD (chronic obstructive pulmonary disease) Status: Chronic Assessment & Plan: Resume home Trelegy. (6) Liver mass, right lobe Status: Acute Assessment & Plan: Incidental on CT, discussed with patient recommendation for dedicated image follow up non-emergent. (7) Left lower lobe pulmonary nodule Status: Acute Assessment & Plan: Incident, discussed with patient recommendation for [address] (8) DVT prophylaxis Status: Acute Assessment & Plan: No pharmacologic due to acute GI bleeding. BIANCA HO MD 11/19/212032: Supervisory-Addendum Brief Verification & Attestation Participated in pt care: history, MDM, physical Personally performed: exam, history, MDM, supervision of care Care discussed with: Medical Student Procedures: n/a I personally obtained my own history and did my own exam which confirmed the findings documented by the medical student. I directed the plan of care as documented by the medical student. MIK MILLER Nov 16, 2021 11:31 BIANCA HO MD Nov 19, 2021 20:33
[2021-11-16 13:58] LABS: HEMATOCRIT 29 % (35-52); HEMOGLOBIN 9.1 g/dL (11.5-16.0); MEAN CORPUSCULAR HEMOGLOBIN 29 pg (25-34); MEAN CORPUSCULAR HGB CONC 32 g/dL (32-36); MEAN CORPUSCULAR VOLUME 91 fL (80-99); MEAN PLATELET VOLUME 9.9 fL (9.0-12.2); PLATELET COUNT 200 10^3/uL (130-400); WHITE BLOOD COUNT 7.9 10^3/uL (4.3-11.0)
[2021-11-16] MEDS ORDERED: DOFETILIDE 250 MCG CAP (TIKOSYN) NON-FORMLUARY PO SCH (15:15)
[2021-11-16 16:52] VITALS: BP 120/58
[2021-11-16 20:47] VITALS: BP 116/58
[2021-11-16] MEDS: ROSUVASTATIN 5 MG (CRESTOR) TABLET PO SCH (22:31)
[2021-11-17 00:06] VITALS: BP 113/55
[2021-11-17] MEDS: CATHETER FLUSH 10 ML SYR IVP SCH ×2 (01:20→06:08)
[2021-11-17 04:08] VITALS: BP 119/56
[2021-11-17 06:06] LABS: BASOPHILS % (AUTO) 1 % (0-10); EOSINOPHILS # (AUTO) 0.2 10^3/uL (0.0-0.3); EOSINOPHILS % (AUTO) 3 % (0-10); HEMATOCRIT 29 % (35-52); HEMOGLOBIN 9.2 g/dL (11.5-16.0); LYMPHOCYTES # (AUTO) 1.8 10^3/uL (1.0-4.0); LYMPHOCYTES % (AUTO) 30 % (12-44); MEAN CORPUSCULAR HEMOGLOBIN 29 pg (25-34); MEAN CORPUSCULAR HGB CONC 32 g/dL (32-36); MEAN CORPUSCULAR VOLUME 91 fL (80-99); MEAN PLATELET VOLUME 10.6 fL (9.0-12.2); MONOCYTES # (AUTO) 0.6 10^3/uL (0.0-1.0); MONOCYTES % (AUTO) 10 % (0-12); NEUTROPHILS # (AUTO) 3.4 10^3/uL (1.8-7.8); NEUTROPHILS % (AUTO) 56 % (42-75); PLATELET COUNT 227 10^3/uL (130-400); WHITE BLOOD COUNT 6.2 10^3/uL (4.3-11.0)
[2021-11-17 06:13] LABS: ALBUMIN 3.1 GM/DL (3.2-4.5); POTASSIUM 4.1 MMOL/L (3.6-5.0)
[2021-11-17 06:15] LABS: CALCIUM 8.3 MG/DL (8.5-10.1)
[2021-11-17 06:16] LABS: TOTAL PROTEIN 5.1 GM/DL (6.4-8.2)
[2021-11-17 06:18] LABS: BILIRUBIN,TOTAL 0.3 MG/DL (0.1-1.0)
[2021-11-17 06:20] LABS: CREATININE SERUM 0.7 MG/DL (0.60-1.30)
--- NOTE | 2021-11-17 07:44 | Progress Note - Hospitalist ---
Subjective HPI/CC On Admission Date Seen by Provider: Nov 17, 2021 Time Seen by Provider: 06:00 Objective Exam Vital Signs Vital Signs Date Time Temp Pulse Resp B/P (MAP) Pulse Ox O2 Delivery O2 Flow Rate FiO2 11/17/21 08:18 36.4 71 18 130/60 (83) 90 Room Air Capillary Refill : Less Than 3 Seconds Results/Procedures Lab Laboratory Tests 11/16/21 13:55 11/17/21 05:40 Patient resulted labs reviewed. CAROLIN RASHEED DO Nov 17, 2021 07:44
[2021-11-17 08:18] VITALS: BP 130/60
[2021-11-17] MEDS: DOFETILIDE 250 MCG CAP (TIKOSYN) NON-FORMLUARY PO SCH (08:50)
[2021-11-17] MEDS ORDERED: DIGOXIN 0.125 MG (LANOXIN) TAB PO SCH (09:00)
--- NOTE | 2021-11-17 10:31 | Discharge Summary ---
Discharge Summary Hospital Course Was the Problem List Reviewed?: Yes Problems/Dx: (1) Rectal/anal hemorrhage Status: Acute (2) Atrial fibrillation Status: Chronic Qualifiers: Qualified Codes: I48.91 - Unspecified atrial fibrillation Hospital Course Date of Admission: Nov 15, 2021 at 02:04 Admission Diagnosis : Family Physician/Provider: Clayton Ortiz MD Date of Discharge: 11/17/21 Discharge Diagnosis: Rectal bleeding, atrial fibrillation on anticoagulation Hospital Course: Standard course after hematochezia so she was monitored closely no indication for transfusion. Oral anticoagulation held. Patient was deemed stable for discharge. Holding anticoagulation since risk of bleeding outweigh benefits of stroke prophylaxis for atrial fibrillation. Labs and Pending Lab Test: Laboratory Tests 11/16/21 13:55: White Blood Count 7.9, Red Blood Count 3.14L, Hemoglobin 9.1L, Hematocrit 29L, Mean Corpuscular Volume 91, Mean Corpuscular Hemoglobin 29, Mean Corpuscular Hemoglobin Concent 32, Red Cell Distribution Width 15.3H, Platelet Count 200, Mean Platelet Volume 9.9 11/17/21 05:40: White Blood Count 6.2, Red Blood Count 3.18L, Hemoglobin 9.2L, Hematocrit 29L, Mean Corpuscular Volume 91, Mean Corpuscular Hemoglobin 29, Mean Corpuscular Hemoglobin Concent 32, Red Cell Distribution Width 15.3H, Platelet Count 227, Mean Platelet Volume 10.6, Immature Granulocyte % (Auto) 1, Neutrophils (%) (Auto) 56, Lymphocytes (%) (Auto) 30, Monocytes (%) (Auto) 10, Eosinophils (%) (Auto) 3, Basophils (%) (Auto) 1, Neutrophils # (Auto) 3.4, Lymphocytes # (Auto) 1.8, Monocytes # (Auto) 0.6, Eosinophils # (Auto) 0.2, Basophils # (Auto) 0.0, Immature Granulocyte # (Auto) 0.0, Sodium Level 138, Potassium Level 4.1, Chloride Level 106, Carbon Dioxide Level 24, Anion Gap 8, Blood Urea Nitrogen 4L , Creatinine 0.70, Estimat Glomerular Filtration Rate 83, BUN/Creatinine Ratio 6, Glucose Level 112H, Calcium Level 8.3L, Corrected Calcium 9.0, Total Bilirubin 0.3, Aspartate Amino Transf (AST/SGOT) 17, Alanine Aminotransferase (ALT/SGPT) 17, Alkaline Phosphatase 42, Total Protein 5.1L, Albumin 3.1L Home Meds Active Reported Tylenol Extra Strength (Acetaminophen) 500 Mg Tablet 500-1,000 Mg PO Q8H PRN Dofetilide 250 Mcg Capsule 250 Mcg PO Diltiazem 24Hr ER (Diltiazem HCl) 240 Mg Cap.er.24h 240 Mg PO DAILY Potassium Chloride 20 Meq Tablet.er 20 Meq PO BID Lisinopril 20 Mg Tablet 20 Mg PO BID LAST FILLED 04-19-2021 #180/90 DAY SUPPLY Eliquis (Apixaban) 5 Mg Tablet 5 Mg PO BID Pravastatin Sodium 40 Mg Tablet 40 Mg PO HS Digoxin 125 Mcg (0.125 Mg) Tablet 125 Mcg PO DAILY Trelegy Ellipta 100-62.5-25 (Fluticasone/Umeclidin/Vilanter) 100-62.5 Blst.w.dev 1 Puff INH DAILY Assessment/Pt Instructions PCP in 1 week Discharge Planning: <30 minutes discharge planning Discharge Instructions Discharge Diet: No Restrictions Discharge Physical Examination Vital Signs Vital Signs Date Time Temp Pulse Resp B/P (MAP) Pulse Ox O2 Delivery O2 Flow Rate FiO2 11/17/21 08:18 36.4 71 18 130/60 (83) 90 Room Air General Appearance: No Apparent Distress, WD/WN, Chronically ill Allergies: Coded Allergies: No Known Drug Allergies (Unverified , 11/14/21) Discharge Summary Date of Admission Nov 15, 2021 at 02:04 Date of Discharge Discharge Date: Nov 17, 2021 CAROLIN RASHEED DO Nov 17, 2021 10:31
[2021-11-17 11:15] VITALS: BP 130/60
--- NOTE | 2021-11-17 11:36 | Progress Note - Surgery ---
BESSIE SOTO 11/17/21 1136: Subjective Date Seen by a Provider: Nov 17, 2021 Time Seen by a Provider: 10:20 Subjective/Events-last exam Pt resting comfortably. States she is feeling much better and is ready to go home. She is tolerating clear diet and had one bowel movement yesterday with no blood. She denies fever, chills, N/v/d, chest pain, sweat, SOB. Review of Systems General: No Chills, No Night Sweats HEENT: No Visual Changes Pulmonary: No Dyspnea, No Cough Cardiovascular: No: Chest Pain Gastrointestinal: No: Nausea, Vomiting, Abdominal Pain, Diarrhea, Melena, Hematochezia Genitourinary: No Retention Objective Exam Vital Signs Date Time Temp Pulse Resp B/P (MAP) Pulse Ox O2 Delivery O2 Flow Rate FiO2 11/17/21 08:18 36.4 71 18 130/60 (83) 90 Room Air 11/17/21 08:00 90 Room Air 11/17/21 04:08 37.2 72 16 119/56 (77) 95 Room Air 11/17/21 00:06 36.8 62 16 113/55 (74) 97 Room Air 11/16/21 20:47 37.0 62 18 116/58 (77) 97 Room Air 11/16/21 20:00 Room Air 11/16/21 16:52 36.9 63 18 120/58 (78) 96 Room Air I & O 11/17/21 07:00 Intake Total 1990 ml Output Total 2250 ml Balance -260 ml Capillary Refill : Less Than 3 Seconds General Appearance: No Apparent Distress, WD/WN HEENT: PERRL/EOMI, Moist Mucous Membranes Neck: Non Tender, Supple Respiratory: Lungs Clear, Normal Breath Sounds, No Accessory Muscle Use, No Respiratory Distress Cardiovascular: No Gallop, No Murmur, Irregularly Irregular (Regular rate. Afib) Peripheral Pulses: 2+ Radial Pulses (R), 2+ Radial Pulses (L) Gastrointestinal: normal bowel sounds, non tender, soft Extremity: Non Tender, No Calf Tenderness, No Pedal Edema Neurologic/Psychiatric: Alert, Oriented x3, Normal Mood/Affect Skin: Normal Color, Warm/Dry Lymphatic: No Adenopathy (no adenopathy of supraclavicular nodes. ) Results Lab Laboratory Tests 11/16/21 13:55: White Blood Count 7.9, Red Blood Count 3.14L, Hemoglobin 9.1L, Hematocrit 29L, Mean Corpuscular Volume 91, Mean Corpuscular Hemoglobin 29, Mean Corpuscular Hemoglobin Concent 32, Red Cell Distribution Width 15.3H, Platelet Count 200, Mean Platelet Volume 9.9 11/17/21 05:40: White Blood Count 6.2, Red Blood Count 3.18L, Hemoglobin 9.2L, Hematocrit 29L, Mean Corpuscular Volume 91, Mean Corpuscular Hemoglobin 29, Mean Corpuscular Hemoglobin Concent 32, Red Cell Distribution Width 15.3H, Platelet Count 227, Mean Platelet Volume 10.6, Immature Granulocyte % (Auto) 1, Neutrophils (%) (Auto) 56, Lymphocytes (%) (Auto) 30, Monocytes (%) (Auto) 10, Eosinophils (%) (Auto) 3, Basophils (%) (Auto) 1, Neutrophils # (Auto) 3.4, Lymphocytes # (Auto) 1.8, Monocytes # (Auto) 0.6, Eosinophils # (Auto) 0.2, Basophils # (Auto) 0.0, Immature Granulocyte # (Auto) 0.0, Sodium Level 138, Potassium Level 4.1, Chloride Level 106, Carbon Dioxide Level 24, Anion Gap 8, Blood Urea Nitrogen 4L , Creatinine 0.70, Estimat Glomerular Filtration Rate 83, BUN/Creatinine Ratio 6, Glucose Level 112H, Calcium Level 8.3L, Corrected Calcium 9.0, Total B ilirubin 0.3, Aspartate Amino Transf (AST/SGOT) 17, Alanine Aminotransferase (ALT/SGPT) 17, Alkaline Phosphatase 42, Total Protein 5.1L, Albumin 3.1L Assessment/Plan Assessment/Plan Assessment/Plan Diverticulosis Lower GI Bleed Atrial Fibrillation Prison anticoagulation Hemoglobin trending upward. She is tolerating liquid diet well and is ready to advance diet to solids. This is likely a diverticular bleed. Consider outpatient colonoscopy if rectal bleeding returns. Pt is not a surgical candidate at this time. She reports Dr. Willis is planning to d/c her this afternoon. MAGALI ELLIS DO 11/18/21 1254: Supervisory-Addendum Brief Verification & Attestation Participated in pt care: other (pt left before I could see her) Personally performed: other (pt left before I could see her) Care discussed with: Medical Student Procedures: n/a pt left before I could see her BESSIE SOTO Nov 17, 2021 11:36 MAGALI ELLIS DO Nov 18, 2021 12:54
== END 2021-11-17 10:29 | disposition home or self-care (01) ==
LOC: ER FS 22:00 → 4TH 22:01 → UNDOADMOB 11-15 02:04 → 4TH 11-15 02:04 → UNDODISOB 11-17 11:15
PROVIDERS: ADMIT Family Medicine; ATTEND Internal Medicine
DX: K62.5 Hemorrhage of anus and rectum (principal); I48.91 Unspecified atrial fibrillation; Z28.311 Partially vaccinated for COVID-19; I10 Essential (primary) hypertension; E78.5 Hyperlipidemia, unspecified; J44.9 Chronic obstructive pulmonary disease, unspecified; R91.1 Solitary pulmonary nodule; R16.0 Hepatomegaly, not elsewhere classified
CPT/HCPCS: 36415; 74177; 80048; 80053 ×2; 81000; 85025 ×3; 85027 ×2; 85610; 85730; 86850; 86900 ×2; 86901 ×2; 99284; G0378; Q9967